=== PATIENT | female | born 1980 | race Asian ===

== ENCOUNTER → 2017-06-27 | Outpatient (CLI) | payer SELFPAY ==
[2014-01-14 14:14] VITALS: BMI 27.3
[~2017-06-27] MED LIST: Ferrous Sulfate PO; HYDR-389 PO; Ibuprofen PO
--- NOTE | 2017-06-27 14:45 | RADIOLOGY IMAGING REPORT ---
FACILITY: [facility] - [place] PATIENT NAME: Vernon Pacheco : 1980 MR: [id number] V: [id number] EXAM DATE: ORDERING PHYSICIAN: ELISE ESCALANTE TECHNOLOGIST: Location: [facility] Patient: Vernon Pacheco : 1980 Visit/Account:[id number] Date of Sevice: 06/27/2017 PELVIC HISTORY: Uterine enlargement, spotting between periods TECHNIQUE: Transabdominal and transvaginal ultrasound pelvis. COMPARISON: None. FINDINGS: Uterus: ; 7.1 cm length x 3.5 cm AP x 3.9 cm transverse. Myometrium: Unremarkable. Endometrium: Unremarkable; double thickness 5.9 mm. Cervix: Nabothian cysts. Ovaries: Right - 2.9 x 2.5 x 2.7 cm Left - 2.2 x 1.4 x 1.7 cm Blood flow is documented in each ovary by duplex Doppler ultrasound. Adnexa: Grossly unremarkable. Free pelvic fluid: None. IMPRESSION: Nabothian cysts otherwise unremarkable pelvic ultrasound Report Dictated By: Suad Dean MD at 06/27/2017 2:39 PM Report E-Signed By: Suad Dean MD at 06/27/2017 2:41 PM WSN:[id number]
== END ==
LOC: US 05:30
PROVIDERS: ATTEND Nurse Practitioner Family
DX: N88.8 Other specified noninflammatory disorders of cervix uteri (principal)
CPT/HCPCS: 76856